=== PATIENT | female | born 1965 | race Two or more races ===

== ENCOUNTER 2017-07-08 07:19 | Outpatient (CLI) | payer OTHER | END 2017-07-08 07:23 | disposition home or self-care (01) | LOC: SONOGRAMA 07:19 | DX: E05.10 Thyrotoxicosis with toxic single thyroid nodule without thyrotoxic crisis or storm (principal) ==

== ENCOUNTER → 2022-02-05 | Emergency (ER) | payer OTHER ==
[~2022-02-05] VITALS: Ht 162.6 cm; Wt 45.4 kg
[~2022-02-05] MED LIST: CLONAZEPAM2 MG; RESTORIL30 M1; TRAZODONE HCL150 MG
== END | disposition home or self-care (01) ==
LOC: ER 00:52
DX: F41.0 Panic disorder [episodic paroxysmal anxiety] (principal)